=== PATIENT | female | born 1980 | race Caucasian/White ===

== ENCOUNTER 2018-02-13 05:59 | Day surgery (SDC) | payer OTHER ==
[~2018-02-13 05:59] MED LIST: SYNTHROID112 MCG PO
[2018-02-13] MEDS ORDERED: NEURONTIN300 MG PO (11:24)
[2018-02-13] MEDS ORDERED: PERCOCET 5-3251 EACH PO (11:24)
[2018-02-13] MEDS ORDERED: COLACE100 MG PO (11:24)
== END 2018-02-13 15:35 | disposition home or self-care (01) ==
LOC: CIR.AMB 05:59
DX: K64.4 Residual hemorrhoidal skin tags (principal); K64.8 Other hemorrhoids